=== PATIENT | female | born 1935 | race African-American/Black ===

== ENCOUNTER 2018-03-19 05:34 | Inpatient (IN) ==
[2018-03-15 10:24] LABS: Basophils % 0.6 % (0.0-0.8); Eosinophils # 0.1 10*3/uL (0.0-0.87); Eosinophils % 1.2 % (0.00-10.9); Hematocrit 38.2 VOL% (35.7-47.0); Hemoglobin 12.1 GM/DL (12.0-16.0); Immature Granulocytes % 0.2 %; Immature Granulocytes Absolute 0.01 #; Lymphocytes # 1.9 10*3/uL (1.4-4.0); Lymphocytes % 38.2 % (21.3-54.2); Mean Corpuscular HGB Conc 31.7 GM/DL (32-36); Mean Corpuscular Hemoglobin 28 PG (27-34); Mean Corpuscular Volume 89.7 FL (87-102); Mean Platelet Volume 10.1 FL (9.6-12.0); Monocytes # 0.3 10*3/uL (0.11-0.8); Monocytes % 6.4 % (1.7-12.7); Neutrophils # 2.6 10*3/uL (1.4-7.4); Neutrophils % 53.4 % (38.7-73.9); Platelet Count 175 T/CUMM (130-400); Red Blood Count 4.26 MC/CUMM (3.8-5.5); Red Cell Distribution Width 13.4 % (9.3-17.3); White Blood Count 4.9 T/CUMM (4-12)
[2018-03-15 10:31] LABS: Apearance,Urine Slightly Hazy (Clear); Bacteria,Urine Many /HPF (Few); Bilirubin,Urine Negative (Negative); Blood, Urine Negative (Negative); Glucose,Urine (UA) Negative (Negative); Ketones,Urine 5 mg/dL (Negative); Mucus,Urine Occasional /LPF (Occasional); Nitrite,Urine Negative (Negative); Protein,Urine Negative; RBC,Urine 1 /HPF (0-4); Squamous Epithelial Cell,Urine Moderate /HPF (0-10); Urine Color Amber (Yellow); Urine Specific Gravity 1.021 (1.001-1.035); WBC,Urine <1 /HPF (0-6)
[2018-03-15 10:34] LABS: INR 0.9; PT Patient Result 10.2 SECS; Partial Thromboplastin Time 25.7 SECS (0-40)
[2018-03-15 10:44] LABS: Albumin 3.2 G/DL (3.4-5.0); Bilirubin,Total 0.4 MG/DL (0.2-1.0); Calcium 8.9 MG/DL (8.5-10.1); Osmolality,Calculated 280.3 MOS/KG (273-304); Potassium 4.1 MMOL/L (3.5-5.1); Total Protein 6.7 G/DL (6.4-8.3)
[2018-03-19] MEDS ORDERED: ceFAZolin 1,000 MG VIAL ONE (05:56)
[2018-03-19] MEDS ORDERED: VANCOMYCIN 500 MG VIAL ONE (05:57)
[2018-03-19] MEDS ORDERED: VANCOMYCIN 1,000 MG VIAL ONE (05:58)
[2018-03-19] MEDS: LACTATED RINGERS 1,000 ML IV SCH ×2 (06:10→08:35)
[2018-03-19] MEDS ORDERED: TRANEXAMIC ACID 1,000 MG/10 ML VIAL ONE (06:27)
[2018-03-19] MEDS ORDERED: ROPIVACAINE 0.5% 30 ML VIAL ONE (06:27)
[2018-03-19] MEDS ORDERED: BUPIVACAINE SPINAL 0.75% 2 ML AMP SPINAL ONE (06:40)
[2018-03-19] MEDS ORDERED: EPINEPHrine 1 MG/ML VIAL ONE (06:42)
[2018-03-19] MEDS ORDERED: BUPIVACAINE 0.5% 50 ML VIAL ONE (06:42)
[2018-03-19] MEDS ORDERED: VANCOMYCIN INJ 1,000 MG in SODIUM CHLORIDE 0.9% 250 ML IV ONE (07:00)
[2018-03-19] MEDS ORDERED: ceFAZolin 1,000 MG in SYRINGE 1 EACH IV ONE (07:00)
[2018-03-19] MEDS ORDERED: MAGNESIUM HYDROXIDE SUSP 30 ML UDCUP PO PRN (07:09)
[2018-03-19] MEDS ORDERED: oxyCODONE IR 5 MG TABLET PO PRN (07:09)
[2018-03-19] MEDS ORDERED: ONDANSETRON 4 MG/2 ML VIAL IV PRN (07:09)
[2018-03-19] MEDS ORDERED: diphenhydrAMINE CAP 25 MG CAPSULE PO PRN (07:09)
[2018-03-19] MEDS ORDERED: PROMETHAZINE 25 MG/1 ML VIAL IM PRN (07:09)
[2018-03-19] MEDS ORDERED: BISACODYL 10 MG SUPP RECTAL PRN (07:09)
[2018-03-19] MEDS ORDERED: TEMAZEPAM 7.5 MG CAPSULE PO PRN (07:09)
[2018-03-19] MEDS ORDERED: LACTULOSE 20 GM/30 ML UDCUP PO PRN (07:09)
[2018-03-19] MEDS ORDERED: TERBINAFINE 1% CREAM 12 GM TUBE TOP PRN (07:12)
[2018-03-19] MEDS ORDERED: TRIAMCINOLONE 0.1% CREAM 15 GM TUBE TOP PRN (07:12)
[2018-03-19] MEDS ORDERED: ePHEDrine 50 MG/ML AMP ONE ×3 (07:23→08:46)
[2018-03-19] MEDS ORDERED: PROPOFOL 200 MG/20 ML VIAL IV ONE (08:45)
[2018-03-19] MEDS ORDERED: fentaNYL 100 MCG/2 ML VIAL ONE (08:46)
[2018-03-19] MEDS ORDERED: SODIUM CHLORIDE 0.9% 200 ML IV ONE (08:46)
[2018-03-19] MEDS ORDERED: MIDAZOLAM 2 MG/2 ML VIAL ONE (08:46)
[2018-03-19] MEDS ORDERED: LACTATED RINGERS 1,000 ML IV ONE (08:46)
[2018-03-19] MEDS ORDERED: CARVEDILOL 6.25 MG TABLET PO SCH (09:00)
[2018-03-19] MEDS: MULTIVITAMIN (CENTRUM) TABLET PO SCH (10:04)
[2018-03-19] MEDS: DOCUSATE SODIUM 100 MG CAPSULE PO SCH ×2 (10:04→21:16)
[2018-03-19] MEDS: LOSARTAN 50 MG TABLET PO SCH (10:05)
[2018-03-19] MEDS: PANTOPRAZOLE 40 MG TABLET PO SCH (10:06)
[2018-03-19] MEDS: MAGNESIUM GLUCONATE 200 MG/ML 30 ML/BOTTLE PO SCH (10:06)
[2018-03-19] MEDS: oxyCODONE IR 5 MG TABLET PO PRN (13:43)
[2018-03-19] MEDS: ceFAZolin 1,000 MG in SYRINGE 1 EACH IV SCH ×2 (13:44→21:15)
[2018-03-19] MEDS: MORPHINE 4 MG/1 ML VIAL IV PRN (16:03)
[2018-03-19] MEDS: CARVEDILOL 3.125 MG TABLET PO SCH (21:15)
[2018-03-19] MEDS: FONDAPARINUX 2.5 MG/0.5 ML SYRINGE SUBCUT SCH (21:15)
[2018-03-20 05:14] LABS: Basophils % 0.3 % (0.0-0.8); Eosinophils # 0.1 10*3/uL (0.0-0.87); Eosinophils % 0.8 % (0.00-10.9); Hematocrit 33.1 VOL% (35.7-47.0); Hemoglobin 10.3 GM/DL (12.0-16.0); Immature Granulocytes % 0.5 %; Immature Granulocytes Absolute 0.04 #; Lymphocytes # 1.6 10*3/uL (1.4-4.0); Lymphocytes % 21.1 % (21.3-54.2); Mean Corpuscular HGB Conc 31.1 GM/DL (32-36); Mean Corpuscular Hemoglobin 28 PG (27-34); Mean Corpuscular Volume 90.4 FL (87-102); Mean Platelet Volume 10.8 FL (9.6-12.0); Monocytes # 0.8 10*3/uL (0.11-0.8); Monocytes % 9.9 % (1.7-12.7); Neutrophils # 5.2 10*3/uL (1.4-7.4); Neutrophils % 67.4 % (38.7-73.9); Platelet Count 137 T/CUMM (130-400); Red Blood Count 3.66 MC/CUMM (3.8-5.5); Red Cell Distribution Width 13.4 % (9.3-17.3); White Blood Count 7.8 T/CUMM (4-12)
[2018-03-20 05:29] LABS: Calcium 8.3 MG/DL (8.5-10.1); Osmolality,Calculated 275.5 MOS/KG (273-304); Potassium 4.2 MMOL/L (3.5-5.1)
[2018-03-20] MEDS: LACTATED RINGERS 1,000 ML IV SCH (05:33)
[2018-03-20] MEDS: MORPHINE 4 MG/1 ML VIAL IV PRN ×3 (05:33→16:50)
[2018-03-20] MEDS: oxyCODONE IR 5 MG TABLET PO PRN ×2 (08:24→14:50)
[2018-03-20] MEDS ORDERED: IBUPROFEN 400 MG TABLET PO PRN (08:28)
[2018-03-20] MEDS: MULTIVITAMIN (CENTRUM) TABLET PO SCH (09:04)
[2018-03-20] MEDS: DOCUSATE SODIUM 100 MG CAPSULE PO SCH ×2 (09:04→22:35)
[2018-03-20] MEDS: CARVEDILOL 3.125 MG TABLET PO SCH ×2 (09:05→22:36)
[2018-03-20] MEDS: LOSARTAN 50 MG TABLET PO SCH (09:05)
[2018-03-20] MEDS: PANTOPRAZOLE 40 MG TABLET PO SCH (09:06)
[2018-03-20] MEDS: MAGNESIUM GLUCONATE 200 MG/ML 30 ML/BOTTLE PO SCH (09:14)
[2018-03-20] MEDS ORDERED: cloNIDine 0.1 MG TABLET PO PRN (16:56)
[2018-03-20] MEDS ORDERED: cloNIDine 0.1 MG TABLET PO ONE (16:57)
[2018-03-20] MEDS: FONDAPARINUX 2.5 MG/0.5 ML SYRINGE SUBCUT SCH (22:36)
[2018-03-21] MEDS: DOCUSATE SODIUM 100 MG CAPSULE PO SCH ×2 (09:20→20:20)
[2018-03-21] MEDS: MULTIVITAMIN (CENTRUM) TABLET PO SCH (09:20)
[2018-03-21] MEDS: CARVEDILOL 3.125 MG TABLET PO SCH ×2 (09:20→20:20)
[2018-03-21] MEDS: PANTOPRAZOLE 40 MG TABLET PO SCH (09:21)
[2018-03-21] MEDS: LOSARTAN 50 MG TABLET PO SCH (09:21)
[2018-03-21] MEDS: MAGNESIUM GLUCONATE 200 MG/ML 30 ML/BOTTLE PO SCH (09:22)
[2018-03-21] MEDS: oxyCODONE IR 5 MG TABLET PO PRN (20:20)
[2018-03-21] MEDS: FONDAPARINUX 2.5 MG/0.5 ML SYRINGE SUBCUT SCH (20:21)
[2018-03-22] MEDS: LOSARTAN 50 MG TABLET PO SCH (08:55)
[2018-03-22] MEDS: MULTIVITAMIN (CENTRUM) TABLET PO SCH (08:56)
[2018-03-22] MEDS: CARVEDILOL 3.125 MG TABLET PO SCH (08:56)
[2018-03-22] MEDS: DOCUSATE SODIUM 100 MG CAPSULE PO SCH (08:56)
[2018-03-22] MEDS: PANTOPRAZOLE 40 MG TABLET PO SCH (08:56)
[2018-03-22] MEDS: MAGNESIUM GLUCONATE 200 MG/ML 30 ML/BOTTLE PO SCH (08:58)
[2018-03-22 11:56] VITALS: BP 121/72
== END 2018-03-22 12:18 | disposition swing bed (61) | DRG 470 ==
LOC: N.OR 05:34 → N.SDSINP 05:36 → N.3E 07:09
PROVIDERS: ADMIT Orthopaedic Surgery; ATTEND Orthopaedic Surgery

== ENCOUNTER 2019-03-26 05:21 | Observation (INO) ==
[2019-03-26] MEDS ORDERED: SODIUM CHLORIDE 0.9% 1,000 ML IV STA (06:32)
[2019-03-26] MEDS ORDERED: ONDANSETRON 4 MG/2 ML VIAL IV STA (06:32)
[2019-03-26] MEDS ORDERED: LORazepam 2 MG/1 ML VIAL IV STA (06:32)
[2019-03-26 06:43] LABS: Basophils % 0.7 % (0.0-0.8); Eosinophils # 0.1 10*3/uL (0.0-0.87); Eosinophils % 1.5 % (0.00-10.9); Hematocrit 37.8 VOL% (35.7-47.0); Immature Granulocytes % 0.2 %; Immature Granulocytes Absolute 0.01 #; Lymphocytes # 1.9 10*3/uL (1.4-4.0); Lymphocytes % 46.5 % (21.3-54.2); Mean Corpuscular HGB Conc 31.7 GM/DL (32-36); Mean Corpuscular Volume 91.3 FL (87-102); Mean Platelet Volume 10.2 FL (9.6-12.0); Monocytes % 7.7 % (1.7-12.7); Neutrophils % 43.4 % (38.7-73.9); Platelet Count 182 T/CUMM (130-400); Red Blood Count 4.14 MC/CUMM (3.8-5.5); Red Cell Distribution Width 13.2 % (9.3-17.3); White Blood Count 4.1 T/CUMM (4-12)
[2019-03-26 06:53] LABS: Alanine Aminotransferase 15 U/L (13-56); Albumin 3.2 G/DL (3.4-5.0); Alkaline Phosphatase 61 U/L (45-117); Aspartate Amino Transferase 13 U/L (0-37); Bilirubin,Total < 0.39 MG/DL (0.2-1.0); Blood Urea Nitrogen 13 MG/DL (7-18); Calcium 8.6 MG/DL (8.5-10.1); Estimated Glom Filtration Rate 78 ML/MIN; Glucose 121 MG/DL (74-106); Osmolality,Calculated 281.3 MOS/KG (273-304); Total Protein 6.6 G/DL (6.4-8.3)
[2019-03-26] MEDS ORDERED: ONDANSETRON 4 MG/2 ML VIAL IV PRN (08:45)
[2019-03-26] MEDS ORDERED: DIAZEPAM 5 MG TABLET PO SCH (09:00)
[2019-03-26] MEDS: MECLIZINE 12.5 MG TABLET PO SCH ×4 (11:00→21:22)
[2019-03-26] MEDS: PANTOPRAZOLE 40 MG TABLET PO SCH (11:00)
[2019-03-26] MEDS: DOCUSATE SODIUM 100 MG CAPSULE PO SCH ×2 (11:00→21:23)
[2019-03-26] MEDS: carvediloL 6.25 MG TABLET PO SCH ×2 (13:00→18:23)
[2019-03-26] MEDS: LOSARTAN 50 MG TABLET PO SCH (13:00)
[2019-03-26] MEDS ORDERED: traMADol 50 MG TABLET PO PRN (14:35)
[2019-03-26] MEDS ORDERED: TRIAMCINOLONE 0.1% CREAM 15 GM TUBE TOP PRN (14:35)
[2019-03-26] MEDS: SODIUM CHLORIDE 0.9% 1,000 ML IV SCH ×2 (18:16→18:19)
[2019-03-26] MEDS: KETOROLAC 0.5% OPH SOLN 5 ML BOTTLE BOTH EYES SCH ×2 (18:17→21:23)
[2019-03-27 05:51] LABS: Calcium 8.4 MG/DL (8.5-10.1); Osmolality,Calculated 281.1 MOS/KG (273-304)
[2019-03-27] MEDS: PANTOPRAZOLE 40 MG TABLET PO SCH (08:05)
[2019-03-27] MEDS: ASPIRIN EC 81 MG TABLET PO SCH (08:05)
[2019-03-27] MEDS: carvediloL 6.25 MG TABLET PO SCH ×2 (08:05→16:48)
[2019-03-27] MEDS: LOSARTAN 50 MG TABLET PO SCH (08:05)
[2019-03-27] MEDS: SERTRALINE 25 MG TABLET PO SCH (08:06)
[2019-03-27] MEDS: DOCUSATE SODIUM 100 MG CAPSULE PO SCH ×2 (08:06→21:23)
[2019-03-27] MEDS: MECLIZINE 12.5 MG TABLET PO SCH ×4 (08:06→21:23)
[2019-03-27] MEDS: MAGNESIUM GLUCONATE 200 MG/ML 30 ML/BOTTLE PO SCH (08:06)
[2019-03-27] MEDS: KETOROLAC 0.5% OPH SOLN 5 ML BOTTLE BOTH EYES SCH ×4 (08:07→21:23)
[2019-03-27] MEDS: cloNIDine 0.1 MG TABLET PO PRN (11:29)
[2019-03-27] MEDS: SODIUM CHLORIDE 0.9% 1,000 ML IV SCH (19:18)
[2019-03-28 05:47] LABS: Calcium 8.2 MG/DL (8.5-10.1)
[2019-03-28] MEDS: ASPIRIN EC 81 MG TABLET PO SCH (08:36)
[2019-03-28] MEDS: SODIUM CHLORIDE 0.9% 1,000 ML IV SCH ×4 (08:36→23:41)
[2019-03-28] MEDS: DOCUSATE SODIUM 100 MG CAPSULE PO SCH ×2 (08:36→20:21)
[2019-03-28] MEDS: SERTRALINE 25 MG TABLET PO SCH (08:37)
[2019-03-28] MEDS: carvediloL 6.25 MG TABLET PO SCH ×2 (08:37→17:48)
[2019-03-28] MEDS: PANTOPRAZOLE 40 MG TABLET PO SCH (08:37)
[2019-03-28] MEDS: MAGNESIUM GLUCONATE 200 MG/ML 30 ML/BOTTLE PO SCH (08:37)
[2019-03-28] MEDS: cloNIDine 0.1 MG TABLET PO PRN (08:37)
[2019-03-28] MEDS: LOSARTAN 50 MG TABLET PO SCH (08:37)
[2019-03-28] MEDS: MECLIZINE 12.5 MG TABLET PO SCH ×4 (08:37→20:21)
[2019-03-28] MEDS: KETOROLAC 0.5% OPH SOLN 5 ML BOTTLE BOTH EYES SCH ×4 (08:38→20:25)
[2019-03-29] MEDS: carvediloL 6.25 MG TABLET PO SCH (07:37)
[2019-03-29] MEDS: cloNIDine 0.1 MG TABLET PO PRN (07:37)
[2019-03-29] MEDS: LOSARTAN 50 MG TABLET PO SCH (08:57)
[2019-03-29] MEDS: ASPIRIN EC 81 MG TABLET PO SCH (08:57)
[2019-03-29] MEDS: MECLIZINE 12.5 MG TABLET PO SCH (08:57)
[2019-03-29] MEDS: PANTOPRAZOLE 40 MG TABLET PO SCH (08:57)
[2019-03-29] MEDS: DOCUSATE SODIUM 100 MG CAPSULE PO SCH (08:57)
[2019-03-29] MEDS: SERTRALINE 25 MG TABLET PO SCH (08:58)
[2019-03-29] MEDS: KETOROLAC 0.5% OPH SOLN 5 ML BOTTLE BOTH EYES SCH (08:59)
[2019-03-29] MEDS: MAGNESIUM GLUCONATE 200 MG/ML 30 ML/BOTTLE PO SCH (09:01)
[2019-03-29 09:26] VITALS: BP 130/65
== END 2019-03-29 11:50 | disposition home or self-care (01) ==
LOC: N.ED 05:21 → N.EDINP 05:21 → N.4E 11:53
PROVIDERS: ADMIT Internal Medicine; ATTEND Internal Medicine

== ENCOUNTER 2020-05-20 23:41 | Inpatient (IN) ==
[2020-05-21] MEDS ORDERED: amLODIPine 5 MG TABLET PO STA (00:07)
[2020-05-21 00:49] LABS: Basophils # 0.1 10*3/uL (0.0-0.2); Basophils % 0.9 % (0.0-0.8); Eosinophils # 0.1 10*3/uL (0.0-0.87); Hematocrit 34.7 VOL% (35.7-47.0); Hemoglobin 11.3 GM/DL (12.0-16.0); Immature Granulocytes % 0.2 %; Immature Granulocytes Absolute 0.01 #; Lymphocytes # 2.2 10*3/uL (1.4-4.0); Lymphocytes % 39.6 % (21.3-54.2); Mean Corpuscular HGB Conc 32.6 GM/DL (32-36); Mean Corpuscular Volume 90.4 FL (87-102); Monocytes % 9.3 % (1.7-12.7); Platelet Count 168 T/CUMM (130-400); Red Blood Count 3.84 MC/CUMM (3.8-5.5); Red Cell Distribution Width 13.3 % (9.3-17.3); White Blood Count 5.5 T/CUMM (4-12)
[2020-05-21 01:08] LABS: Alanine Aminotransferase 11 U/L (13-56); Albumin 3.4 G/DL (3.4-5.0); Alkaline Phosphatase 52 U/L (45-117); Aspartate Amino Transferase 11 U/L (0-37); Bilirubin,Total < 0.39 MG/DL (0.2-1.0); Blood Urea Nitrogen 18 MG/DL (7-18); Calcium 8.9 MG/DL (8.5-10.1); Carbon Dioxide 30 MMOL/L (21-32); Estimated Glom Filtration Rate 58 ML/MIN; Glucose 116 MG/DL (74-106); Osmolality,Calculated 275.8 MOS/KG (273-304); Potassium 3.6 MMOL/L (3.5-5.1); Sodium 137 MMOL/L (136-145); Total Protein 6.3 G/DL (6.4-8.2)
[2020-05-21 01:25] LABS: Bacteria,Urine Many /HPF (Few); Bilirubin,Urine Negative (Negative); Blood, Urine Negative (Negative); Glucose,Urine (UA) Negative (Negative); Granular Casts,Urine 4 /LPF (0-1); Hyaline Casts,Urine 25 /LPF (0-3); Ketones,Urine Negative (Negative); Mucus,Urine Occasional /LPF (Occasional); Nitrite,Urine Negative (Negative); Protein,Urine Negative; RBC,Urine 2 /HPF (0-4); Renal Epithelial Cells,Urine Occasional /HPF (<1); Squamous Epithelial Cell,Urine Moderate /HPF (0-10); Urine Appearance Slightly Hazy (Clear); Urine Color Yellow (Yellow); WBC,Urine 2 /HPF (0-6)
[2020-05-21] MEDS ORDERED: ONDANSETRON 4 MG/2 ML VIAL IV PRN (02:13)
[2020-05-21] MEDS ORDERED: cloNIDine 0.1 MG TABLET PO STA (02:47)
[2020-05-21] MEDS: SODIUM CHLORIDE 0.9% 1,000 ML IV SCH (02:50)
[2020-05-21] MEDS: ENOXAPARIN 40 MG/0.4 ML SYRINGE SUBCUT SCH (03:05)
[2020-05-21 05:19] LABS: Basophils % 0.8 % (0.0-0.8); Eosinophils # 0.1 10*3/uL (0.0-0.87); Hematocrit 33.5 VOL% (35.7-47.0); Hemoglobin 10.6 GM/DL (12.0-16.0); Immature Granulocytes % 0.2 %; Immature Granulocytes Absolute 0.01 #; Lymphocytes # 1.9 10*3/uL (1.4-4.0); Lymphocytes % 38.7 % (21.3-54.2); Mean Corpuscular HGB Conc 31.6 GM/DL (32-36); Mean Platelet Volume 10.7 FL (9.6-12.0); Monocytes % 7.8 % (1.7-12.7); Neutrophils % 50.5 % (38.7-73.9); Platelet Count 161 T/CUMM (130-400); Red Blood Count 3.68 MC/CUMM (3.8-5.5); Red Cell Distribution Width 13.4 % (9.3-17.3)
[2020-05-21 05:40] LABS: Bilirubin,Total 0.7 MG/DL (0.2-1.0); Osmolality,Calculated 280.4 MOS/KG (273-304); Potassium 3.4 MMOL/L (3.5-5.1); Risk Ratio 3.43; Total Protein 5.8 G/DL (6.4-8.2); VLDL CHOLESTEROL 21.4 MG/DL
[2020-05-21] MEDS: DOCUSATE SODIUM 100 MG CAPSULE PO SCH ×2 (08:57→20:47)
[2020-05-21] MEDS: PANTOPRAZOLE 40 MG TABLET PO SCH (08:57)
[2020-05-21] MEDS: ASPIRIN EC 325 MG TABLET PO SCH (08:57)
[2020-05-21] MEDS ORDERED: MAGNESIUM SULF RIDER 2 GM in PREMIX 1 EACH IV ONE (12:29)
[2020-05-21] MEDS ORDERED: POTASSIUM CHLORIDE 20 MEQ TABLET PO ONE (12:29)
[2020-05-21] MEDS ORDERED: ASPIRIN EC 81 MG TABLET PO SCH (12:30)
[2020-05-21] MEDS: carvediloL 6.25 MG TABLET PO SCH ×2 (14:05→20:48)
[2020-05-21] MEDS: ACETAMINOPHEN 500 MG TABLET PO PRN (14:10)
[2020-05-22] MEDS: ENOXAPARIN 40 MG/0.4 ML SYRINGE SUBCUT SCH (03:50)
[2020-05-22] MEDS: SODIUM CHLORIDE 0.9% 1,000 ML IV SCH (03:51)
[2020-05-22 04:40] LABS: Basophils % 0.9 % (0.0-0.8); Eosinophils # 0.1 10*3/uL (0.0-0.87); Eosinophils % 2.4 % (0.00-10.9); Hematocrit 33.1 VOL% (35.7-47.0); Hemoglobin 10.6 GM/DL (12.0-16.0); Immature Granulocytes % 0.2 %; Immature Granulocytes Absolute 0.01 #; Lymphocytes # 1.7 10*3/uL (1.4-4.0); Mean Corpuscular Volume 89.5 FL (87-102); Mean Platelet Volume 10.1 FL (9.6-12.0); Monocytes % 10.4 % (1.7-12.7); Neutrophils % 46.1 % (38.7-73.9); Platelet Count 148 T/CUMM (130-400); Red Cell Distribution Width 13.2 % (9.3-17.3); White Blood Count 4.2 T/CUMM (4-12)
[2020-05-22 05:15] LABS: Calcium 8.9 MG/DL (8.5-10.1); Osmolality,Calculated 281.3 MOS/KG (273-304); Potassium 3.7 MMOL/L (3.5-5.1)
[2020-05-22] MEDS: PANTOPRAZOLE 40 MG TABLET PO SCH (08:33)
[2020-05-22] MEDS: ASPIRIN EC 325 MG TABLET PO SCH (08:33)
[2020-05-22] MEDS: carvediloL 6.25 MG TABLET PO SCH ×2 (08:33→21:03)
[2020-05-22] MEDS: DOCUSATE SODIUM 100 MG CAPSULE PO SCH ×2 (08:33→21:03)
[2020-05-22] MEDS: ACETAMINOPHEN 500 MG TABLET PO PRN (22:45)
[2020-05-23] MEDS: ENOXAPARIN 40 MG/0.4 ML SYRINGE SUBCUT SCH (03:00)
[2020-05-23] MEDS: SODIUM CHLORIDE 0.9% 1,000 ML IV SCH (03:15)
[2020-05-23] MEDS: PANTOPRAZOLE 40 MG TABLET PO SCH (08:57)
[2020-05-23] MEDS: DOCUSATE SODIUM 100 MG CAPSULE PO SCH ×2 (08:57→20:45)
[2020-05-23] MEDS: ASPIRIN EC 325 MG TABLET PO SCH (08:57)
[2020-05-23] MEDS: carvediloL 6.25 MG TABLET PO SCH ×2 (08:57→20:45)
[2020-05-24] MEDS: SODIUM CHLORIDE 0.9% 1,000 ML IV SCH (02:13)
[2020-05-24] MEDS: ENOXAPARIN 40 MG/0.4 ML SYRINGE SUBCUT SCH (02:56)
[2020-05-24] MEDS: ASPIRIN EC 325 MG TABLET PO SCH (09:22)
[2020-05-24] MEDS: carvediloL 6.25 MG TABLET PO SCH ×2 (09:23→20:45)
[2020-05-24] MEDS: DOCUSATE SODIUM 100 MG CAPSULE PO SCH ×2 (09:23→20:45)
[2020-05-24] MEDS: PANTOPRAZOLE 40 MG TABLET PO SCH (09:23)
[2020-05-24] MEDS: cloNIDine 0.1 MG TABLET PO PRN (11:38)
[2020-05-25] MEDS: SODIUM CHLORIDE 0.9% 1,000 ML IV SCH (01:41)
[2020-05-25] MEDS: ENOXAPARIN 40 MG/0.4 ML SYRINGE SUBCUT SCH (02:30)
[2020-05-25] MEDS: carvediloL 6.25 MG TABLET PO SCH (09:27)
[2020-05-25] MEDS: PANTOPRAZOLE 40 MG TABLET PO SCH (09:27)
[2020-05-25] MEDS: DOCUSATE SODIUM 100 MG CAPSULE PO SCH (09:27)
[2020-05-25] MEDS: ASPIRIN EC 325 MG TABLET PO SCH (09:27)
[2020-05-25] MEDS: cloNIDine 0.1 MG TABLET PO PRN (12:57)
[2020-05-25] MEDS ORDERED: SERTRALINE 25 MG TABLET PO SCH (13:56)
[2020-05-25] MEDS ORDERED: BUTALBITAL/ACETAMIN/CAFFEINE 50-325-40 MG TABLET PO PRN (16:25)
[2020-05-25 16:34] VITALS: BP 124/66
[2020-05-25] MEDS ORDERED: APIXABAN 5 MG TABLET PO SCH (21:00)
[2020-05-26] MEDS ORDERED: ASPIRIN EC 81 MG TABLET PO SCH (09:00)
[2020-05-26] MEDS ORDERED: ATORVASTATIN 40 MG TABLET PO SCH (09:00)
== END 2020-05-25 18:39 | disposition home health service (06) | DRG 66 ==
LOC: N.ED 23:41 → N.EDINP 23:41 → N.TELEN 05-21 02:22
PROVIDERS: ADMIT Internal Medicine; ATTEND Internal Medicine

== ENCOUNTER 2020-05-26 23:19 | Observation (INO) ==
[2020-05-27] MEDS ORDERED: hydrALAZINE 20 MG/1 ML VIAL IV STA (00:18)
[2020-05-27 01:01] LABS: Basophils # 0.1 10*3/uL (0.0-0.2); Basophils % 0.7 % (0.0-0.8); Eosinophils # 0.1 10*3/uL (0.0-0.87); Eosinophils % 1.2 % (0.00-10.9); Hematocrit 38.5 VOL% (35.7-47.0); Hemoglobin 12.2 GM/DL (12.0-16.0); Immature Granulocytes % 0.3 %; Immature Granulocytes Absolute 0.02 #; Lymphocytes # 1.8 10*3/uL (1.4-4.0); Lymphocytes % 23.9 % (21.3-54.2); Mean Corpuscular HGB Conc 31.7 GM/DL (32-36); Mean Corpuscular Volume 90.8 FL (87-102); Mean Platelet Volume 9.9 FL (9.6-12.0); Monocytes % 7.1 % (1.7-12.7); Neutrophils % 66.8 % (38.7-73.9); Platelet Count 185 T/CUMM (130-400); Red Blood Count 4.24 MC/CUMM (3.8-5.5); Red Cell Distribution Width 13.2 % (9.3-17.3); White Blood Count 7.7 T/CUMM (4-12)
[2020-05-27] MEDS ORDERED: niCARdipine INJ 25 MG in SODIUM CHLORIDE 0.9% 240 ML IV PRN (01:02)
[2020-05-27] MEDS ORDERED: niCARdipine 25 MG/10 ML VIAL IV ONE (01:06)
[2020-05-27 01:14] LABS: PT Patient Result 11.2 SECS (9.8-11.9); Partial Thromboplastin Time 29.3 SECS (23.9-33.8)
[2020-05-27 01:25] LABS: Troponin I < 0.015 NG/ML (0.00-0.045)
[2020-05-27 02:57] LABS: Alanine Aminotransferase 14 U/L (13-56); Albumin 3.7 G/DL (3.4-5.0); Alkaline Phosphatase 63 U/L (45-117); Aspartate Amino Transferase 19 U/L (0-37); Bilirubin,Total < 0.39 MG/DL (0.2-1.0); Blood Urea Nitrogen 19 MG/DL (7-18); Calcium 9.4 MG/DL (8.5-10.1); Carbon Dioxide 27 MMOL/L (21-32); Estimated Glom Filtration Rate 67 ML/MIN; Glucose 103 MG/DL (74-106); Osmolality,Calculated 276.7 MOS/KG (273-304); Potassium 4.2 MMOL/L (3.5-5.1); Sodium 138 MMOL/L (136-145); Total Protein 6.7 G/DL (6.4-8.2)
[2020-05-27] MEDS ORDERED: carvediloL 3.125 MG TABLET PO STA (03:42)
[2020-05-27] MEDS ORDERED: cloNIDine 0.2 MG/24 HR PATCH TRANSDERM SCH (04:00)
[2020-05-27] MEDS ORDERED: BUTALBITAL/ACETAMIN/CAFFEINE 50-325-40 MG TABLET PO PRN (08:52)
[2020-05-27] MEDS ORDERED: SODIUM CHLORIDE 0.9% 1,000 ML IV SCH (08:52)
[2020-05-27] MEDS ORDERED: ONDANSETRON 4 MG/2 ML VIAL IV PRN (08:52)
[2020-05-27] MEDS ORDERED: ACETAMINOPHEN 500 MG TABLET PO PRN (08:52)
[2020-05-27] MEDS ORDERED: ACETAMINOPHEN 325 MG TABLET PO PRN (08:52)
[2020-05-27] MEDS ORDERED: PANTOPRAZOLE 40 MG TABLET PO SCH (09:00)
[2020-05-27] MEDS: carvediloL 6.25 MG TABLET PO SCH ×2 (09:38→17:40)
[2020-05-27] MEDS: DOCUSATE SODIUM 100 MG CAPSULE PO SCH ×2 (10:33→20:27)
[2020-05-27] MEDS: ASPIRIN EC 81 MG TABLET PO SCH (10:33)
[2020-05-27] MEDS: APIXABAN 5 MG TABLET PO SCH ×2 (10:33→20:27)
[2020-05-27] MEDS ORDERED: SERTRALINE 25 MG TABLET PO SCH (11:00)
[2020-05-27] MEDS ORDERED: cloNIDine 0.1 MG TABLET PO SCH (11:30)
[2020-05-27] MEDS: busPIRone 5 MG TABLET PO SCH ×2 (11:57→20:27)
[2020-05-27] MEDS: ATORVASTATIN 40 MG TABLET PO SCH (20:27)
[2020-05-28 05:40] LABS: Basophils % 0.6 % (0.0-0.8); Eosinophils # 0.1 10*3/uL (0.0-0.87); Hematocrit 32.2 VOL% (35.7-47.0); Hemoglobin 10.4 GM/DL (12.0-16.0); Immature Granulocytes % 0.2 %; Immature Granulocytes Absolute 0.01 #; Lymphocytes # 1.9 10*3/uL (1.4-4.0); Lymphocytes % 38.2 % (21.3-54.2); Mean Corpuscular HGB Conc 32.3 GM/DL (32-36); Mean Corpuscular Volume 90.7 FL (87-102); Mean Platelet Volume 10.2 FL (9.6-12.0); Monocytes % 9.5 % (1.7-12.7); Neutrophils % 49.5 % (38.7-73.9); Platelet Count 163 T/CUMM (130-400); Red Blood Count 3.55 MC/CUMM (3.8-5.5); Red Cell Distribution Width 13.5 % (9.3-17.3)
[2020-05-28] MEDS: PANTOPRAZOLE 40 MG TABLET PO SCH (06:03)
[2020-05-28 06:27] LABS: Albumin 2.9 G/DL (3.4-5.0); Bilirubin,Total 0.4 MG/DL (0.2-1.0); Calcium 8.8 MG/DL (8.5-10.1); Osmolality,Calculated 272.8 MOS/KG (273-304); Potassium 3.8 MMOL/L (3.5-5.1); Total Protein 5.7 G/DL (6.4-8.2)
[2020-05-28] MEDS: busPIRone 5 MG TABLET PO SCH ×2 (08:23→20:40)
[2020-05-28] MEDS: DOCUSATE SODIUM 100 MG CAPSULE PO SCH ×2 (08:23→20:40)
[2020-05-28] MEDS: APIXABAN 5 MG TABLET PO SCH ×2 (08:23→20:40)
[2020-05-28] MEDS: SERTRALINE 50 MG TABLET PO SCH (08:24)
[2020-05-28] MEDS: ASPIRIN EC 81 MG TABLET PO SCH (08:24)
[2020-05-28] MEDS ORDERED: carvediloL 3.125 MG TABLET PO SCH (09:00)
[2020-05-28 09:49] LABS: Thyroid Stimulating Hormone 0.602 uIU/ml (0.358-3.74)
[2020-05-28] MEDS ORDERED: MAGNESIUM SULF RIDER 2 GM in PREMIX 1 EACH IV PRN (15:00)
[2020-05-28] MEDS ORDERED: MAGNESIUM SULF RIDER 4 GM in PREMIX 1 EACH IV PRN (15:00)
[2020-05-28] MEDS: ATORVASTATIN 40 MG TABLET PO SCH (20:40)
[2020-05-29] MEDS: PANTOPRAZOLE 40 MG TABLET PO SCH (06:05)
[2020-05-29 07:19] VITALS: BP 136/60
[2020-05-29] MEDS: APIXABAN 5 MG TABLET PO SCH (08:12)
[2020-05-29] MEDS: SERTRALINE 50 MG TABLET PO SCH (08:12)
[2020-05-29] MEDS: ASPIRIN EC 81 MG TABLET PO SCH (08:12)
[2020-05-29] MEDS: DOCUSATE SODIUM 100 MG CAPSULE PO SCH (08:12)
[2020-05-29] MEDS: busPIRone 5 MG TABLET PO SCH (08:12)
== END 2020-05-29 10:54 | disposition home health service (06) ==
LOC: N.EDINP 23:19 → N.ED 23:19 → N.EDINP 05-27 08:18 → N.5E 05-27 08:55
PROVIDERS: ADMIT Internal Medicine; ATTEND Internal Medicine

== ENCOUNTER 2020-06-03 18:14 | Observation (INO) ==
[2020-06-03] MEDS ORDERED: hydrALAZINE 20 MG/1 ML VIAL IV STA (19:34)
[2020-06-03 19:51] LABS: Basophils % 0.5 % (0.0-0.8); Eosinophils # 0.1 10*3/uL (0.0-0.87); Eosinophils % 0.9 % (0.00-10.9); Hematocrit 38.1 VOL% (35.7-47.0); Hemoglobin 12.4 GM/DL (12.0-16.0); Immature Granulocytes % 0.5 %; Immature Granulocytes Absolute 0.03 #; Lymphocytes % 30.1 % (21.3-54.2); Mean Corpuscular HGB Conc 32.5 GM/DL (32-36); Mean Corpuscular Volume 90.1 FL (87-102); Mean Platelet Volume 9.6 FL (9.6-12.0); Monocytes % 7.8 % (1.7-12.7); Neutrophils % 60.2 % (38.7-73.9); Platelet Count 198 T/CUMM (130-400); Red Blood Count 4.23 MC/CUMM (3.8-5.5); Red Cell Distribution Width 13.2 % (9.3-17.3); White Blood Count 6.5 T/CUMM (4-12)
[2020-06-03 20:23] LABS: Albumin 3.6 G/DL (3.4-5.0); Bilirubin,Total 0.4 MG/DL (0.2-1.0); Calcium 9.3 MG/DL (8.5-10.1); Osmolality,Calculated 263.5 MOS/KG (273-304); Potassium 4.2 MMOL/L (3.5-5.1); Total Protein 7.4 G/DL (6.4-8.2)
[2020-06-03] MEDS ORDERED: amLODIPine 5 MG TABLET PO STA (21:01)
[2020-06-03] MEDS ORDERED: ONDANSETRON 4 MG/2 ML VIAL IV PRN (21:40)
[2020-06-03] MEDS ORDERED: ACETAMINOPHEN 325 MG TABLET PO PRN (21:40)
[2020-06-04] MEDS ORDERED: hydrALAZINE 20 MG/1 ML VIAL IV PRN (02:07)
[2020-06-04 07:13] LABS: Basophils % 0.6 % (0.0-0.8); Eosinophils % 0.8 % (0.00-10.9); Hematocrit 33.2 VOL% (35.7-47.0); Hemoglobin 10.7 GM/DL (12.0-16.0); Immature Granulocytes % 0.4 %; Immature Granulocytes Absolute 0.02 #; Lymphocytes # 1.5 10*3/uL (1.4-4.0); Lymphocytes % 27.2 % (21.3-54.2); Mean Corpuscular HGB Conc 32.2 GM/DL (32-36); Mean Corpuscular Volume 90.2 FL (87-102); Mean Platelet Volume 9.9 FL (9.6-12.0); Monocytes % 12.6 % (1.7-12.7); Neutrophils % 58.4 % (38.7-73.9); Platelet Count 176 T/CUMM (130-400); Red Blood Count 3.68 MC/CUMM (3.8-5.5); Red Cell Distribution Width 13.2 % (9.3-17.3); White Blood Count 5.3 T/CUMM (4-12)
[2020-06-04 07:22] LABS: Albumin 2.8 G/DL (3.4-5.0); Bilirubin,Total 0.8 MG/DL (0.2-1.0); Calcium 8.7 MG/DL (8.5-10.1); Osmolality,Calculated 270.1 MOS/KG (273-304); Potassium 4.2 MMOL/L (3.5-5.1); Total Protein 5.8 G/DL (6.4-8.2)
[2020-06-04] MEDS ORDERED: cloNIDine 0.2 MG/24 HR PATCH TRANSDERM SCH (09:00)
[2020-06-04] MEDS ORDERED: LOSARTAN 50 MG TABLET PO SCH (09:00)
[2020-06-04] MEDS ORDERED: amLODIPine 10 MG TABLET PO SCH (09:00)
[2020-06-04] MEDS ORDERED: ACETAMINOPHEN 500 MG TABLET PO PRN (10:11)
[2020-06-04] MEDS ORDERED: SERTRALINE 25 MG TABLET PO SCH (10:30)
[2020-06-04] MEDS: ASPIRIN EC 81 MG TABLET PO SCH (12:19)
[2020-06-04] MEDS: lisinopriL 10 MG TABLET PO SCH (12:19)
[2020-06-04] MEDS: APIXABAN 5 MG TABLET PO SCH ×2 (12:21→21:07)
[2020-06-04] MEDS: carvediloL 6.25 MG TABLET PO SCH ×2 (12:21→21:07)
[2020-06-04] MEDS: PANTOPRAZOLE 40 MG TABLET PO SCH (12:22)
[2020-06-04] MEDS: busPIRone 5 MG TABLET PO SCH ×3 (12:26→21:08)
[2020-06-04] MEDS: KETOROLAC 0.5% OPH SOLN 5 ML BOTTLE BOTH EYES SCH ×3 (14:22→21:08)
[2020-06-04] MEDS ORDERED: ATORVASTATIN 40 MG TABLET PO SCH (17:00)
[2020-06-04] MEDS ORDERED: SERTRALINE 50 MG TABLET PO SCH (21:00)
[2020-06-05 06:17] LABS: Basophils % 0.6 % (0.0-0.8); Eosinophils # 0.1 10*3/uL (0.0-0.87); Eosinophils % 1.7 % (0.00-10.9); Hematocrit 30.6 VOL% (35.7-47.0); Hemoglobin 10.2 GM/DL (12.0-16.0); Immature Granulocytes % 0.2 %; Immature Granulocytes Absolute 0.01 #; Lymphocytes # 1.5 10*3/uL (1.4-4.0); Lymphocytes % 31.1 % (21.3-54.2); Mean Corpuscular HGB Conc 33.3 GM/DL (32-36); Mean Corpuscular Volume 87.9 FL (87-102); Mean Platelet Volume 9.5 FL (9.6-12.0); Monocytes % 9.2 % (1.7-12.7); Neutrophils % 57.2 % (38.7-73.9); Platelet Count 154 T/CUMM (130-400); Red Blood Count 3.48 MC/CUMM (3.8-5.5); Red Cell Distribution Width 13.2 % (9.3-17.3); White Blood Count 4.8 T/CUMM (4-12)
[2020-06-05 06:50] LABS: Calcium 8.8 MG/DL (8.5-10.1); Osmolality,Calculated 273.8 MOS/KG (273-304); Potassium 4.3 MMOL/L (3.5-5.1)
[2020-06-05] MEDS ORDERED: MAGNESIUM SULF RIDER 4 GM in PREMIX 1 EACH IV PRN (07:27)
[2020-06-05] MEDS ORDERED: MAGNESIUM SULF RIDER 2 GM in PREMIX 1 EACH IV PRN (07:27)
[2020-06-05] MEDS: PANTOPRAZOLE 40 MG TABLET PO SCH (08:14)
[2020-06-05] MEDS: lisinopriL 10 MG TABLET PO SCH (08:14)
[2020-06-05] MEDS: carvediloL 6.25 MG TABLET PO SCH (08:14)
[2020-06-05] MEDS: APIXABAN 5 MG TABLET PO SCH (08:15)
[2020-06-05] MEDS: busPIRone 5 MG TABLET PO SCH (08:15)
[2020-06-05] MEDS: ASPIRIN EC 81 MG TABLET PO SCH (08:15)
[2020-06-05] MEDS: KETOROLAC 0.5% OPH SOLN 5 ML BOTTLE BOTH EYES SCH ×2 (08:15→13:06)
[2020-06-05] MEDS ORDERED: amLODIPine 5 MG TABLET PO SCH (09:00)
[2020-06-05 15:54] VITALS: BP 168/74
== END 2020-06-05 15:55 | disposition home health service (06) ==
LOC: N.ED 18:14 → N.EDINP 18:14 → N.TELES 22:15
PROVIDERS: ADMIT Internal Medicine; ATTEND Internal Medicine